=== PATIENT | male | born 1955 | race Caucasian/White ===

== ENCOUNTER 2023-03-23 08:53 | Day surgery (SDC) | payer MEDICARE, OTHER ==
[2023-03-21 13:38] VITALS: BMI 33.2
[2023-03-23] MEDS ORDERED: Lidocaine 2% MPF 10 ML AMP (For Epidural Use) ONE (09:38)
[2023-03-23] MEDS ORDERED: PROPOFOL 60 ML ONE (09:38)
[2023-03-23] MEDS ORDERED: PROPOFOL 20 ML ONE ×2 (10:08→10:30)
== END 2023-03-23 11:20 | disposition home or self-care (01) ==
LOC: CSHSDC 08:53
PROVIDERS: ATTEND Internal Medicine Gastroenterology
PROC: 0DJD8ZZ Inspection of Lower Intestinal Tract, Via Natural or Artificial Opening Endoscopic (ICD-10-PCS; principal; 2023-03-23)
DX: Z12.11 Encounter for screening for malignant neoplasm of colon (principal); K64.8 Other hemorrhoids; I10 Essential (primary) hypertension; E78.5 Hyperlipidemia, unspecified; E11.9 Type 2 diabetes mellitus without complications; Z79.899 Other long term (current) drug therapy
CPT/HCPCS: J2704

== ENCOUNTER 2024-03-25 12:35 | Outpatient (CLI) | payer MEDICARE, OTHER | END 2024-03-25 12:36 | disposition home or self-care (01) | LOC: CSHULT 12:35 | PROVIDERS: ATTEND Internal Medicine | DX: N18.31 Chronic kidney disease, stage 3a (principal) | CPT/HCPCS: 76770 ==